=== PATIENT | female | born 1985 | race Caucasian/White ===

== ENCOUNTER 2022-04-22 13:09 | Outpatient (CLI) | payer OTHER, SELFPAY ==
--- NOTE | ~2022-04-22 | MMUS_ITS ---
EXAMINATION: MM diagnostic shawna BI w tiki, US breast BI complete HISTORY: Palpable bilateral breast lumps TECHNIQUE: Additional 3-D tomosynthesis images of the breasts were performed and synthetic 2-D images were generated. CAD analysis was submitted and interpreted. High resolution bilateral complete breas t ultrasound was performed. COMPARISON: None BREAST PARENCHYMAL COMPOSITION: The breasts are heterogeneously dense, which may obscure small masses FINDINGS: MAMMOGRAPHIC FINDINGS: There are no suspicious masses, calcifications or architectural distortion in either breast to sugges t malignancy. ULTRASOUND: Complete bilateral US of all 4 quadrants of the breasts and retroareolar region was reviewed. Normal heterogeneous echotexture without focal solid or cystic mass. IMPRESSION: 1. No evidence for malignancy in either breast. 2. Routine yearly screening mammogram and regular clinical breast examination are recommended. BI-RADS Category 1: Negative Reviewed, dictated and finalized at location A. IMPRESSION: 1. No evidence for malignancy in either breast. 2. Routine yearly screening mammogram and regular clinical breast examination a re recommended. BI-RADS Category 1: Negative
== END 2022-04-22 13:10 | disposition home or self-care (01) ==
PROVIDERS: Visit Provider Nurse Practitioner
DX: N63.10 Unspecified lump in the right breast, unspecified quadrant (principal)
CPT/HCPCS: 76641; 77062; 77066; G0279

== ENCOUNTER 2024-06-27 00:41 | Day surgery (SDC) | payer OTHER, SELFPAY ==
[2024-06-20 15:17] VITALS: BMI 22.8
--- NOTE | 2024-06-20 15:29 | PC.NURSE ---
Report to the Outpatient Waiting Room, entrance under the green pavilion located off [facility], at time __0600_ on date __06/27/24 . Planned Procedure Time: _07 .? Time changes happen often and if your time is changed the preop area will call you the afternoon before. - You and your visitor will be asked to self-screen and do not enter if you have any COVID symptoms. Please call surgeon if you need to reschedule. - A mask is optional within the hospital at this time. Patients may have clear liquids (water, carbonated beverages, clear teas, apple juice) until 3 hours prior to surgery with a maximum of 20 ounces. - No food from midnight until time of surgery and no smoking - Infants may have breast milk until 4 hours before surgery, formula 6 hours prior to surgery. - Children will be allowed to drink immediately following surgery.? If applicable, please bring a bottle or sippy cup to assist with drinking. Juice, water, soda, and popsicles are readily available.? For infants on formula, please bring formula the day of surgery.? Pacifiers are allowed. Take only the following medications with a SIP of water on the morning of surgery: _Nothing DO NOT STOP ANY OF YOUR OTHER PRESCRIPTION MEDICATIONS PRIOR TO SURGERY EXCEPT THE FOLLOWING Medications to discontinue per physician __Vitamins 3 days prior, Patient is to ask about when to stop Diclofenac Please no make-up, nail romanian, hairspray, perfume, deodorant, or body powder the day of surgery.? No jewelry (including any body piercings) or valuables the day of surgery, leave them at home.? Please take a shower or bath the night before, or the morning of, surgery with an antibacterial soap.? Wear comfortable, loose fitting clothing.? Children are encouraged to wear pajamas. - Jewelry must be removed prior to entering the operating room.? Rings and piercings that are not removed may be cut off. - The hospital will not accept responsibility for valuables.? - Please leave all valuables, including medications, at home the day of surgery. If you are going home after surgery, a licensed passenger coach driver must drive you home.? - NO public transportation without another adult if you receive anesthesia. - We recommend that an adult stay with you for 24 hours following discharge. - We also recommend that you do not drive, make important decision, drink alcoholic beverages, or take any drugs that were not prescribed by your health care provider for at least 24 hours after your discharge time. For Pediatric surgeries, we recommend two adults accompany the child home. Follow any additional instructions given to you from your surgeon. Telephone instructions given to _Trista and asked if any additional questions and then verbalized understanding. Patient advised to call surgeon office or pre surgery nurse liaison [phone] if any additional questions.
[2024-06-27] VITALS (8 sets, daily range): BP systolic 96–110; BP diastolic 58–72; PULSE 57–78; RESP 12–16; TEMP 36.2–37; O2SAT 97–100; BMI 23.9
[2024-06-27] MEDS: ACETAMINOPHEN 500 MG TABLET 1000 MG PO (07:01)
[2024-06-27] MEDS: KETOROLAC 15 MG/ML VIAL (*BKC) IV PUSH (07:01)
--- NOTE | 2024-06-27 07:15 | WPDHPUPDATE1 ---
History and Physical Update Update Date/Time: 06/27/24 07:15 History and Physical has been reviewed, including an updated exam of the patient. There are NO changes in the patient's condition. Risks, benefits, and alternatives have been discussed and questions answered. Patient agrees to proceed with procedure.
--- NOTE | 2024-06-27 07:16 | P.HP_ITS ---
H&P: HPI History of Present Illness Date/Time: 06/27/24 07:16 Chief Complaint: Infertility Narrative: this patient is a 38-year-old female who desires sterilization. We have agreed to perform laparoscopic bilateral salpingectomy. The patient understands the details of the procedure. The procedure has been explained in detail. She understands the risks. She understands that injuries may occur that result in hospitalization, more surgery, and severe illness. She understands risk of hemorrhage and infection. She denies any chest pain or shortness of breath. She denies any nausea, vomiting, fever, chills. Review of Systems Review of Systems: All systems reviewed & are unremarkable except as noted in HPI and below Constitutional: Constitutional: Denies chills, Denies fatigue, Denies fever(s) and Denies weakness Eyes: Eyes: Denies blurry vision, Denies change in vision, Denies loss of peripheral vision, Denies loss of vision, Denies other visual disturbances and Denies eye pain ENT: Denies vertigo, Denies dizziness, Denies hearing loss, Denies mouth pain, Denies nasal obstruction, Denies neck mass and Denies neck pain Cardiovascular: Cardiovascular: Denies chest pain, Denies diaphoresis, Denies syncope, Denies leg edema and Denies dyspnea Respiratory: Respiratory: Denies chest congestion, Denies cough, Denies hemoptysis, Denies dyspnea and Denies wheezing Gastrointestinal: Gastrointestinal: Denies abdominal pain, Denies constipation, Denies diarrhea, Denies nausea and Denies vomiting Genitourinary: Genitourinary: Denies hematuria, Denies change in libido, Denies nocturia, Denies genital lesions, Denies flank pain and Denies urinary urgency Musculoskeletal: Musculoskeletal: Denies abnormal gait, Denies back pain, Denies myalgias, Denies arthralgias, Denies joint swelling, Denies muscle weakness and Denies neck pain Integumentary/Breasts: Skin/Breast: Denies swelling, Denies breast pain, Denies breast mass, Denies dry skin, Denies nipple discharge, Denies unusual bruising and Denies jaundice Neurologic: Denies Neuro-related abnormal movements, Denies Abnormal speech present, Denies abnormal gait, Denies behavioral changes, Denies confusion, Denies vertigo, Denies dizziness, Denies syncope, Denies loss of vision, Denies memory loss, Denies convulsions and Denies weakness Psychiatric: Psychiatric: Denies abnormal sleep pattern, Denies behavioral changes, Denies change in libido, Denies confusion, Denies depression, Denies anhedonia and Denies memory loss Endocrine: Endocrine: Reports no additional endocrine complaints, Denies change in libido and Denies fatigue Hematologic/Lymphatic: Hematologic/Lymphatic: Reports no additional brandin tologic/lymphatic complaints Allergic/Immunologic: Allergic/Immunologic: Reports no additional allergic/immunologic complaints and Denies wheezing PMFSH Social History Social History Smoking status: Current some day smoker Tobacco type: cigars Alcohol intake: current Drinks per week: 2 Substance use: never Living arrangements: with family Spiritual care concerns: No Meds Home Medications and Allergies Home Medications Medication Instructions Recorded Confirmed Type Adults Multivitamin 1 tablet PO DAILY 06/20/24 06/20/24 History diclofenac sodium 50 mg 50 mg PO TID 06/20/24 06/20/24 History tablet,delayed release hydroxychloroquine 200 mg tablet 200 mg PO DAILY 06/20/24 06/20/24 History magnesium 250 mg tablet 250 mg PO DAILY 06/20/24 06/20/24 History Allergies Allergy/AdvReac Type Severity Reaction Status Date / Time MESNA CHEMOTHERAPY DRUG Allergy Severe NAUSEA AND Uncoded 12/22/18 19:40 VOMTING, HIGH FEVER Vital Signs Vital Signs - 24 hr 06/27/24 06:58 Temperature 97.1 F L Pulse Rate 70 Blood Pressure 105/60 Pulse Oximetry 99 Oxygen Delivery Room Air Exam Const: General: cooperative, healthy appearing, comfortable and no acute distress Orientation/consciousness: oriented to person, oriented to place and oriented to time HENMT: Head: normal to inspection Ears: external ears normal Face/Nose/Sinus: Normal external nose present and normal facial exam Face and sinus: normal facial exam Eyes: General: appearance normal, both eyes and all related structures Neck: Neck: normal visual inspection, trachea midline and supple Resp: Auscultation: clear to auscultation bilaterally, no crackles, no rales, no rhonchi and no wheezes Cardio: Rate: regular rate Rhythm: regular rhythm Heart sounds: no click, no murmurs and no rubs GI: GI Palp: No abdominal tenderness, No Soft to palpation, No Tenderness to palpation present (GI) and No Palpable mass present Auscultation: normal bowel sounds Skin: General skin exam: normal color and no rashes or lesions noted Neuro: General: oriented to person, oriented to place and oriented to time Extrem: General: normal to inspection, no joint enlargement, no clubbing, cyanosis or edema, no pedal edema and no calf tenderness Psych: Appearance: grossly normal Mental Status: mental status grossly normal Speech and movement: Normal speech and movement present Assessment and Plan Assessment and plan (1) Encounter for female sterilization procedure: Code(s): Z30.2 - Encounter for sterilization Status: Acute Plan this patient is a 38-year-old female with unwanted fertility who presents for laparoscopic bilateral salpingectomy. She understands risks, benefits, and alternatives. She has completed informed consent process is ready to proceed.
--- NOTE | 2024-06-27 07:21 | P.PNAN_ITS ---
Anes - Initial Pre Proc Eval Procedure: Operation Date: 06/27/24 07:30 Proposed Procedures p Laparoscopic Bilateral Salpingectomy - Zoran Aguayo MD Date/Time: 06/27/24 07:21 Surgeon: Zoran Aguayo MD Pre Op Diagnosis: Desired sterilization Pre Op Diagnosis: desires sterilization Patient Data Age: 38 Gender: F Height: 1.68 m Weight: 67.3 kg Last Vital Signs Temp 36.2 C L 06/27/24 06:58 Pulse 70 06/27/24 06:58 BP 105/60 06/27/24 06:58 Pulse Ox 99 06/27/24 06:58 O2 Del Method Room Air 06/27/24 06:58 Allergies Allergy/AdvReac Type Severity Reaction Status Date / Time MESNA CHEMOTHERAPY DRUG Allergy Severe NAUSEA AND Uncoded 12/22/18 19:40 VOMTING, HIGH FEVER Home Medications Medication Instructions Recorded Confirmed Type Adults Multivitamin 1 tablet PO DAILY 06/20/24 06/20/24 History diclofenac sodium 50 mg 50 mg PO TID 06/20/24 06/20/24 History tablet,delayed release hydroxychloroquine 200 mg tablet 200 mg PO DAILY 06/20/24 06/20/24 History magnesium 250 mg tablet 250 mg PO DAILY 06/20/24 06/20/24 History : patient denies Patient hx anesthesia problems: none Family hx anesthesia problems: none Results Review: All pre-operative results and documents have been reviewed as part of the pre- operative evaluation. [facility] Past Medical History Medical History Lupus (systemic lupus erythematosus) Social History Social History Smoking status: Current some day smoker Tobacco type: cigars Alcohol intake: current Drinks per week: 2 Substance use: never Living arrangements: with family Spiritual care concerns: No Anes - Eval Final PreProcedure Day of Procedure 06/27/24 07:21 Patient weight: normal Heart: regular rate and rhythm Lungs: clear to auscultation and normal air movement Airway: Mallampati scale class II Neurological: alert and oriented Last oral intake: >/= 8 hours ASA classification: II Emergent: no Anesthetic plan: proceed Anesthesia type and monitoring: general ETT and standard monitoring Results Review: All pre-operative results and documents have been reviewed as part of the pre- operative evaluation. Informed Consent: The patient's anesthetic plan and its attendant risks and benefits were discussed with the patient/family/POA. Questions were solicited and answers provided to the satisfaction of the patient/family/POA.
[2024-06-27] MEDS: LACTATED RINGERS 1,000 ML 30 ML IV CONT (07:27)
[2024-06-27 07:29] LABS: BEDSIDEPREGUCG Negative (Negative)
--- NOTE | 2024-06-27 08:10 | P.OP_ITS ---
Procedure Note - Detailed Date of Procedure 06/27/24 Pre-op Diagnosis desires sterilization Post-op Diagnosis Same Procedure Performed Laparoscopic bilateral salpingectomy Surgeon Zoran Aguayo MD Anesthesia General Indications Unwanted fertility Findings Normal pelvic anatomy Description of Procedure The patient was taken the operating room. She was prepped and draped in the dorsal lithotomy position after induction of general anesthesia. A 5 mm skin incision was made in the left upper quadrant of the abdominal skin. A 5 mm trocar was inserted the intra-abdominal cavity under direct visualization of the scope. Pneumoperitoneum was achieved. A 5 mm trocar was inserted in the left lower quadrant identical fashion. A 5 mm infraumbilical trocar was inserted in identical fashion as well. The bilateral fallopian tubes were removed. This was done by using a LigaSure cautery. The mesosalpinx adjacent to the tube was cauterized transected with LigaSure. This was initiated in the area the ovary and in a stepwise fashion moved medially to the area of the cornu of the uterus. Once there the fallopian tube was cauterized and transected. This was done in identical fashion on each side. The fallopian tubes were taken out through the left lower quadrant trocar site. The pneumoperitoneum was reduced. The trocars removed. The skin was closed with subcuticular 4 Monocryl and covered with D ermabond. She was taken to cover stable condition. Sponge lap and needle counts were correct x2. Estimated Blood Loss 5 Drains No Packing No Pathology Yes Complications No immediate complications Condition Stable Disposition PACU
--- NOTE | 2024-06-27 08:30 | SUR.PHASEI ---
0830: Simple mask removed.
== END 2024-06-27 10:08 | disposition home or self-care (01) ==
PROVIDERS: Visit Provider Obstetrics & Gynecology
PROC: (CPT 49320; principal; 2024-06-27 07:30)
DX: Z30.2 Encounter for sterilization (principal); N83.8 Other noninflammatory disorders of ovary, fallopian tube and broad ligament; L93.0 Discoid lupus erythematosus; F17.290 Nicotine dependence, other tobacco product, uncomplicated
CPT/HCPCS: 58661; 88302; A9270; J1100; J1171; J1885; J2003; J2250; J2405; J2704; J3010; J7030; J7120